=== PATIENT | male | born 1950 | race Caucasian/White ===

== ENCOUNTER 2017-08-07 07:56 | Emergency (ER) | payer MEDICARE ==
[2017-08-07] MEDS ORDERED: ASPIRIN 325 MG TABLET PO ONE (08:15)
[2017-08-07] MEDS ORDERED: MAGNESIUM HYDROXIDE/AL HYDROX 30 ML, LIDOCAINE VISC 2% 15ML 15 ML PO ONE ×2 (08:15)
--- NOTE | 2017-08-07 08:19 | Emergency Department Record ---
History of Present Illness - General Chief Complaint: Chest Pain Stated Complaint: CHEST PAIN Time Seen by Provider: 08/07/17 08:07 Source: Patient Mode of Arrival: Ambulatory Limitations: No limitations - History of Present Illness Initial Comments: The patient is here due to a 6 hour hx of chest discomfort. He describes it as a chest burning that is nonradiating. The patient denies any SOB, sweating, or nausea with the pain. The onset was after eating a box of [employer] prior to going to sleep per the patient. He denies any back pain, AP, cough, fever, SANCHEZ or CP with exertion. 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 MD Complaint: Chest pain Onset/Timin -: Hour(s) Onset: After eating, During rest Pain Location: Substernal Pain Radiation: None Severity scale (1-10): 7 Quality: Other Consistency: Constant Improves With: Nothing Worsens With: Supine Treatments Prior to Arrival: None - Related Data Home Medications Medication Instructions Recorded Confirmed Last Taken No Home Med [NO HOME MEDS] 08/07/17 08/07/17 Unknown Allergies Allergy/AdvReac Type Severity Reaction Status Date / Time No Known Drug Intolerances Allergy Unknown Unverified 06/19/13 10:12 (Continued): Allergy Unknown Uncoded 06/19/13 10:12 Allergies: Allergy Unknown Uncoded 06/19/13 10:12 Travel Screening - Travel/Exposure Within Last 30 Days Have you traveled within the last 30 days?: No Review of Systems Constitutional: Denies: Chills, Fever Eyes: Denies: Eye discharge ENT: Denies: Congestion Respiratory: Denies: Cough, Dyspnea Past Medical History - SOCIAL HISTORY Smoking Status: Former smoker Alcohol Use: None Drug Use: None - RESPIRATORY Hx Respiratory Disorders: No - CARDIOVASCULAR Hx Cardio Disorders: Yes Hx Abnormal EKG: Yes Hx Heart Attack: Yes - NEURO Hx Neuro Disorders: No Comment:: tremor - GI Hx GI Disorders: Yes Hx Reflux: Yes - Hx Genitourinary Disorders: No - ENDOCRINE Hx Endocrine Disorders: No - MUSCULOSKELETAL Hx Musculoskeletal Disorders: No - PSYCH Hx Psych Problems: No - HEMATOLOGY/ONCOLOGY Hx Hematology/Oncology Disorders: No Family Medical History Any Significant Family History?: No Physical Exam - General General Appearance: Alert, Oriented x3, Cooperative, No acute distress - Head Head exam: Atraumatic, Normocephalic, Normal inspection - Eye Eye exam: Normal appearance, PERRL, EOMI - ENT Throat exam: Normal inspection. negative: Tonsillar erythema, Tonsillar exudate - Neck Neck exam: Normal inspection, Full ROM. negative: Tenderness - Respiratory Respiratory exam: Normal lung sounds bilaterally. negative: Respiratory distress - Cardiovascular Cardiovascular Exam: Regular rate, Normal rhythm, Normal heart sounds - GI/Abdominal GI/Abdominal exam: Soft, Normal bowel sounds. negative: Tenderness - Extremities Extremities exam: Normal inspection, Full ROM, Normal capillary refill. negative: Tenderness - Back Back exam: Reports: Normal inspection - Neurological Neurological exam: Alert. negative: Motor sensory deficit - Psychiatric Psychiatric exam: negative: Anxious - Skin Skin exam: negative: Rash Course Vital Signs 08/07/17 07:59 Temperature 97.7 F Pulse Rate 59 L Respiratory 20 Rate Blood Pressure 196/102 Pulse Ox 97 - Reevaluation(s) Reevaluation #1: The patient is feeling better at this time but still having some discomfort. I did discuss the positive cardiac enzymes with him and the need for transfer to [facility] [place] for a Cardiology consult. I then did discuss the case with Dr. Salomon and he does accept the consultation. He would like the patient admitted to the medicine service so we will consult them. 08/07/17 09:05 Reevaluation #2: The patient is doing better at this time. He states the pain is decreasing and his vitals are very stable. 08/07/17 09:15 Reevaluation #3: The patient is doing well with normal vital signs. We are still waiting for a call back for an accepting physician. The D-service attending did call back but they are not information lead at [facility] [place] for no doc admissions so we are waiting for the A service doctor to call back. 08/07/17 09:28 Reevaluation #4: We did get in touch with the A-service attending Dr. Villagomez who did accept the patient for admission to [facility] [place]. 08/07/17 09:45 Reevaluation #5: The patient is doing a little better but still having some pain. We are going up on his NTG drip. I did update Dr. Salomon as to recent events and the patient' s condition and he will see him at the hospital when he gets there. 08/07/17 10:09 We did call [facility] [place] regarding the delay in obtaining the bed but the nursing blood bank supervisor was never called by Dr. Villagomez. We clearly expressed our frustration and asked to expedite the bed due to the patient having a Non Q wave NE. 08/07/17 10:16 Medical Decision Making - Data Complexity MDM Data: Labs Ordered and/or Reviewed, X-Ray Ordered and/or Reviewed, EKG Ordered and/or Reviewed - Lab Data Result diagrams: 08/07/17 08:05 08/07/17 08:05 - EKG Data -: EKG Interpreted by Me (Afib wih RBBB and LAFB. Neg for acute ischemia.) - Radiology Data Radiology results: Report reviewed (CXR: Neg for any acute changes.) Critical Care Time Critical Care Time: Yes Total Critical Care Time: 45 Disposition Disposition: Transfer Clinical Impression: Non Q wave myocardial infarction Disposition: Acute Care Hospital Transfer Transfer To: [facility] [place] Reason For Transfer: Cardiology Accepting Physician: Dahlia Time Discussed w/Accepting Physician: 09:46 Condition: (2) Stable Forms: Patient Portal Access Time of Disposition: 09:46 Quality - Quality Measures Quality Measures: N/A - Blood Pressure Screening View Details: Yes Does Patient Have Any of the Following: No Blood Pressure Classification: Pre-Hypertensive BP Reading Systolic Measurement: 145 Diastolic Measurement: 81 Screening for High Blood Pressure: < Pre-Hypertensive BP, F/U Documented > [ [id number]] Pre-Hypertensive Follow-up Interventions: Referral to alternative/primary care provider.
[2017-08-07 08:22] LABS: BASO % 0.1 % (0-6); EOS % 0.3 % (0-6); HEMATOCRIT 48.2 % (42.0-52.0); HEMOGLOBIN 16.3 gm/dl (14.0-18.0); LYMPH % 8.6 % (16-45); MEAN CELL VOLUME 92.2 fl (81-97); MEAN CORPUSCULAR HEMOGLOBIN 31.2 pg (27-33); MEAN CORPUSCULAR HGB CONC 33.8 g/dl (32-36); MEAN PLATELET VOLUME 9.5 fl (7.4-10.4); MONO % 3.5 % (0-9); PLATELET COUNT 192 K/uL (130-400); RED BLOOD COUNT 5.23 M/uL (4.40-5.70); RED CELL DISTRIBUTION WIDTH 13.5 % (11.5-14.5); WHITE BLOOD COUNT W/O DIFF 7.1 K/uL (4.2-12.2)
[2017-08-07 08:32] LABS: BLOOD UREA NITROGEN 14 mg/dL (8-23); CREATININE 1.1 mg/dL (0.7-1.2); EST GLOMERULAR FILTRATION RATE > 60 mL/min
[2017-08-07 08:35] LABS: GLUCOSE,RANDOM 141 mg/dL (74-109)
[2017-08-07 08:37] LABS: PARTIAL THROMBOPLASTIN TIME 28.9 SECONDS (24.5-39.1); PROTHROMBIN TIME (PATIENT) 10.7 SECONDS (9.5-12.1)
[2017-08-07] MEDS ORDERED: SUCRALFATE 1 G/10 ML UD PO ONE (08:41)
[2017-08-07] MEDS ORDERED: HEPARIN SODIUM 1000 UNIT/1 ML 10ML VIAL IVP ONE (08:43)
[2017-08-07] MEDS ORDERED: HEPARIN SODIUM/D5W 25,000 UNITS/500 ML BAG IV SCH (08:45)
[2017-08-07] MEDS ORDERED: NITROGLYCERIN/D5W 50 MG/250 ML ML IV SCH ×2 (08:45→09:26)
[2017-08-07 08:49] LABS: CREATINE PHOSPHOKINASE 249 U/L (39-308)
[2017-08-07] MEDS ORDERED: ONDANSETRON HCL IV 4 MG/2 ML VIAL IVP ONE (09:55)
--- NOTE | 2017-08-09 08:49 | RADIOLOGY REPORT ---
EXAM: CHEST, TWO VIEWS HISTORY: CHEST PAIN. TECHNIQUE: PA and lateral upright views of the chest were obtained. Comparison: None. FINDINGS: The patient is status post median sternotomy. The heart is normal in size. The mediastinum and pulmonary vasculature are normal. The lungs are hyperinflated consistent with COPD. There is mild biapical pleural thickening. There are no acute infiltrates or effusions. There is no pneumothorax. The bones appear intact. IMPRESSION: 1. NO ACUTE CHEST PATHOLOGY. 2. HYPERINFLATION AND POST SURGICAL CHANGES. JOB NUMBER: [id number] [facility]
== END 2017-08-07 11:11 | disposition short-term general hospital (02) ==
LOC: ER 07:56
DX: I21.4 Non-ST elevation (NSTEMI) myocardial infarction (principal); Z87.891 Personal history of nicotine dependence; Z95.1 Presence of aortocoronary bypass graft; I48.91 Unspecified atrial fibrillation
CPT/HCPCS: 71046; 80048; 82550; 82553; 84484; 85027; 85610; 85730; 93005; 93010; 96365; 96366; 96368; 96375; 99285; J2405; J3490